=== PATIENT | male | born 1950 | race Caucasian/White ===

== ENCOUNTER → 2018-09-29 | Outpatient (CLI) | payer OTHER | LOC: CAT 10:29 | DX: Z13.6 Encounter for screening for cardiovascular disorders (principal); E78.00 Pure hypercholesterolemia, unspecified; Z82.49 Family history of ischemic heart disease and other diseases of the circulatory system ==

== ENCOUNTER → 2018-11-19 | Outpatient (CLI) | payer OTHER ==
[~2018-11-19] MED LIST: DOXYCYCLINE 10100 MG PO; LIPITOR 20 MG T20 M1 PO; OMEPRAZOLE40 MG PO; QUINAPRIL HCL40 MG PO
[2018-11-19 11:42] VITALS: BP 147/72
[2018-11-19 12:02] LABS: HEMATOCRIT 41.2 % (42.0-52.0); HEMOGLOBIN 13.9 gm/dL (14.0-18.0); MCH 31.7 pg (26.0-34.0); MCHC 33.7 g/dL (28.0-37.0); MCV 94.3 fL (80.0-100.0); RBC 4.38 mil/uL (4.50-6.00); RDW 14.2 % (10.5-14.5); WBC 3.5 thou/uL (4.0-11.0)
[2018-11-19 12:04] LABS: CALCIUM 9.1 mg/dL (8.5-10.1); CREATININE 0.9 mg/dL (0.7-1.3); POTASSIUM 3.8 mmol/L (3.5-5.1)
--- NOTE | 2018-11-20 11:36 | H ---
[facility] [place] [address] HISTORY AND PHYSICAL Name: ROLY JANSEN Room #: REG Kishor Brenda.#: [id number] Admission: 11/19/18 ������������������ Attend Phys: Juan Alberto Lino Discharge: ������������������ Date of : 48 Report #: [id number] THIS REPORT FOR: //name// CC: Juan Alberto Killian HISTORY OF PRESENT ILLNESS: This is a very pleasant gentleman who was seen in the office for assessment of elevated calcium score. In view of his symptoms were that of exertional in nature, he underwent perfusion scanning. The perfusion scan demonstrated significant reversible defect involving the anterior wall suspicious for ischemia. In view of this, it was deemed important and necessary to delineate coronary anatomy, assess risk and assess long-term benefits. Cardiac catheterization was recommended. PHYSICAL EXAMINATION: GENERAL: Well-developed, well-nourished male, resting comfortably, in no acute distress. HEENT: Normocephalic, atraumatic. Pupils are equal, round, reactive to light and accommodation. Extraocular muscles are intact. Sclerae and conjunctivae are anicteric. NECK: JVD is normal. Carotid upstrokes are bilaterally symmetrical. No bruits are heard. No thyromegaly. No lymphadenopathy. LUNGS: Clear to auscultation. No wheezes, rhonchi or crackles. No CVA tenderness. CARDIAC: Demonstrates a regular rhythm. Normal first and second heart sounds. No ventricular or atrial gallops, no rubs noted. No murmurs. No lifts or heaves, PMI normal. ABDOMEN: Soft, nontender, nondistended. Normal bowel sounds. EXTREMITIES: Without cyanosis, clubbing or edema. Distal pulses are intact. DTR symmetrical. NEUROLOGIC: Cranial nerves 2-12 are grossly normal and symmetrical. PSYCHIATRIC: Alert, oriented with normal affect. SKIN: Warm and dry. IMPRESSION: Elevated calcium score with a markedly abnormal perfusion scan involving the anterior wall. In view of this, cardiac catheterization was recommended. The risks, complications and alternatives to cath, percutaneous revascularization and conscious sedation have been discussed with the patient. He voices understanding and wishes to proceed. ��������������������������������������������� <ELECTRONICALLY SIGNED> ���������������������������������������� By: Juan Alberto Lino MD ��������������������������������������������� 11/20/18 1136 [id number] Juan Alberto Lino MD /nt
--- NOTE | 2018-11-20 15:14 | EKG ---
[address] [place] [place] [address] ELECTROCARDIOGRAM REPORT Name: ROLY JANSEN Room #: REG ROSA Bueno#: [id number] ������������������ Admission: 11/19/18 ������������������ Attend Phys: Juan Alberto Lino Discharge: ������������������ Date of : 48 Report #: [id number] ����������������������������������������������������������������� [id number] THIS REPORT FOR: //name// [facility] Test Date: 2018-11-19 Test Time: 12:07:24 Pat Name: ROLY JANSEN Department: Room: Gender: M [employer]ist: : 1950 Requested By: Juan Alberto Lino Order Number: [id number] MD: Juan Alberto Lino Measurements Intervals [place] Rate: 50 P: 18 MA: 176 QRS: -17 QRSD: 109 T: 32 QT: 453 QTc: 414 Interpretive Statements Sinus rhythm Nonspecific ST-T wave abnormalities Borderline left axis deviation No previous ECG available for comparison Electronically Signed On 11-20-2018 15:14:29 CDT by Juan Alberto Lino [email or web address] ��������������������������������������������� <ELECTRONICALLY SIGNED> ���������������������������������������� By: Juan Alberto Lino MD ��������������������������������������������� 11/20/18 1514 1207 120 Juan Alberto Lino MD /ANNA
--- NOTE | 2018-11-23 12:35 | CATHLAB ---
[facility] [address] [place] [address] INVASIVE PROCEDURE REPORT Name: ROLY JANSEN [facility]: [facility] [id number] ������������� Admission: 11/19/18 ������������� Attend Phys: Juan Alberto Lofton Discharge: ��� ������������� ��� Date of : 48 Date of Service: 11/23/18 1235 �� Report #: [id number] �������� ��������������������������������������������[id number] THIS REPORT FOR: //name// ADDENDUM APPROVED REPORT Study performed: 11/19/2018 13:05:22 Patient Details Patient Status: Out-Patient Room #: The patient is a 68 year-old male Event Personnel Juan Alberto Lino Director Radiation Oncology, Jackeline Jay RN RN, Juan J Aldana, Marika Ferguson Monitor Procedures Performed Left Heart Cath w/or w/o Coronaries [id number] [facility], supervision of conscious sedation Indication Chest pain Procedure Narrative The Right Groin^ was infiltrated with 1% Lidocaine subcutaneous anesthesia. A PINNACLE 4FR Sheath #[id number] sheath was inserted into the RFA^. Coronary angiography was performed using coronary diagnostic catheters. The right coronary system was accessed and visualized with a JR4 catheter. The left coronary system was accessed and visualized with a 4FR JL 5.0 #[id number] catheter. The left ventricle was accessed and visualized with a PIGTAIL catheter. Left ventricular/Aortic Valve gradient assessed via catheter pullback. Hemostasis was obtained with manual pressure following sheath removal without any complications. The patient tolerated the procedure well and there were no complications associated with the procedure. There was no hematoma. Intraoperative Conscious Sedation Sedation start time: 13.02 Case end Time: 13.22 Versed 2 mg Fluoro Time: 3.50 minutes Dose: DAP 5795.00 cGycm2 1038 mGy Contrast Type and Amount: Omnipaque [address] [facility] [email or web address] [place] [address] INVASIVE PROCEDURE REPORT Name: ROLY JANSEN Room #: [facility]#: [id number] ������������� Admission: 11/19/18 ������������� Attend Phys: Juan Alberto Lofton Discharge: ��� ������������� ��� Date of : 48 Date of Service: 11/23/18 1235 �� Report #: [id number] �������� ��������������������������������������������[id number] Coronary Angiography The patient's coronary anatomy is right dominant. Diagnostic Cath Left Main Small to moderate caliber vessel of normal origin bifurcates left anterior descending left circumflex. As a distal taper of less than 30% and no flow-limiting lesions LAD Small-caliber type II vessel which has proximal irregularities of 40% at most. It continues in the anterior interventricular sulcus with irregularities of less than 30% noted as it terminates is a small-caliber vessel at the apex. Agonal branches are small Diagonal 1 Immediate 2 vessel without significant high-grade lesions Circumflex Small-caliber vessel coursing posteriorly AV groove giving rise to a small caliber tortuous first marginal branch free of high-grade disease. And continues on as a smaller caliber vessel giving rise to a small posterior wall marginal branch and terminating his artery to the posterior aspect which appears to have a direct connection to the outflow tract. OM1 Small-caliber nonobstructive vessel Right Coronary Caliber vessel normal origin with luminal irregularities present in courses severe posterior crux of the heart rate is a small posterior descending artery. The distal circulation is a small caliber posterior lateral branch free of high-grade disease R PDA All caliber vessel without high-grade lesions noted Left Ventriculography Left Ventriculography was not performed. Hemodynamics The aortic pressure is 149/69 mmHg with a mean of 99 mmHg. The left ventricular pressure is 147/2 mmHg with a mean of mmHg. The left ventricular end diastolic pressure is 15 mmHg. There was no gradient across the aortic valve upon pullback. Pullback from the left ventricle to the aorta revealed no gradient across the aortic valve. Conclusion 1. Minimal coronary disease nonobstructive small caliber vessels 2. Normal hemodynamics Recommendations [facility] [address] [place] [address] INVASIVE PROCEDURE REPORT Name: ROLY JANSEN [facility] [id number] ������������� Admission: 11/19/18 ������������� Attend Phys: Juan Alberto Lofton Discharge: ��� ������������� ��� Date of : 48 Date of Service: 11/23/18 1235 �� Report #: [id number] �������� ��������������������������������������������[id number] Cardiac Risk Reduction Program Medical Therapy ��������������������������������������������� <ELECTRONICALLY SIGNED> ���������������������������������������� By: Juan Alberto Lino MD ��������������������������������������������� 11/23/18 1235 1235 1235 Juan Alberto Lino MD /INF
== END | disposition home or self-care (01) ==
LOC: CATH 10:48
PROVIDERS: Internal Medicine
DX: I25.10 Atherosclerotic heart disease of native coronary artery without angina pectoris (principal); Z98.890 Other specified postprocedural states; Z82.49 Family history of ischemic heart disease and other diseases of the circulatory system; Z79.899 Other long term (current) drug therapy; Z85.848 Personal history of malignant neoplasm of other parts of nervous tissue